=== PATIENT | male | born 1945 | race Caucasian/White ===

== ENCOUNTER 2022-12-24 11:05 | Outpatient (CLI) | payer OTHER, SELFPAY ==
[2022-12-24 11:49] LABS: Add Urine Microscopic? NO; Charge for UA Resulting for Rev
[2022-12-24 11:55] LABS: Bilirubin Urine Neg (Negative); Blood Urine Neg (Negative); Glucose Urine UA Norm (Normal); Ketones Urine Negative (Negative); Leukocyte Esterase Urine Negative (Negative); Nitrate Urine Negative (Negative); Protein Urine Neg (Negative); Urine Appearance Clear (CLEAR); Urine Color Yellow (Yellow); Urobilinogen Urine 1 mg/dL (Negative); pH Urine 7 (5-7)
[2022-12-24 12:08] LABS: Alanine Aminotransferase 16 U/L (0-41); Albumin Level 4.2 g/dL (3.5-5.2); Alkaline Phosphatase 103 U/L (40-130); Anion Gap 13.9 (5-19); Aspartate Amino Transferase 14 U/L (0-40); Blood Urea Nitrogen 23 mg/dL (8-23); Calcium 9.8 mg/dL (8.5-10.5); Carbon Dioxide 28 mmol/L (22-29); Chloride 104 mmol/L (98-107); Globulin 2.5 g/dL (1.3-4.6); Glucose 123 mg/dL (65-115); Osmolality Calculated 297 mOsm/kg (285-295); Potassium 4.9 mmol/L (3.5-5.1); Sodium 141 mmol/L (136-145); Total Bilirubin 0.7 mg/dL (0.15-1.2); Total Protein 6.7 g/dL (6.6-8.7)
== END 2022-12-24 11:06 | disposition home or self-care (01) ==
PROVIDERS: Visit Provider Chiropractor
DX: E11.9 Type 2 diabetes mellitus without complications (principal)
CPT/HCPCS: 80053; 81003